=== PATIENT | female | born 1995 | race Caucasian/White ===

== ENCOUNTER 2021-05-14 18:36 | Emergency (ER) | payer MEDICAID ==
[~2021-05-14] VITALS: Ht 161.3 cm; Wt 74.8 kg
[2021-05-14 18:55] VITALS: BP 123/74
[2021-05-14 21:47] LABS: APPEARANCE,URINE CLEAR (CLEAR); BILIRUBIN,URINE NEGATIVE (NEGATIVE); BLOOD, URINE NEGATIVE (NEGATIVE); COLOR,URINE YELLOW (YELLOW); LEUKOCYTE ESTERASE ,URINE NEGATIVE (NEGATIVE); NITRITE, URINE NEGATIVE (NEGATIVE); UGLUCOSE NEGATIVE (NEGATIVE)
--- NOTE | 2021-05-14 23:10 | NUR ---
PT AMBULATED TO BED #4
--- NOTE | 2021-05-15 01:42 | NUR ---
Patient discharged with v/s stable. Written and verbal after care instructions given and explained. Patient verbalized understanding. Ambulatory with steady gait. All questions addressed prior to discharge. Advised to follow up with PMD.
== END 2021-05-15 01:42 | disposition home or self-care (01) ==
LOC: MED 18:36
DX: N93.9 Abnormal uterine and vaginal bleeding, unspecified (principal)
CPT/HCPCS: 36415; 81003; 81025; 84702; 86901; 87491; 99283